=== PATIENT | female | born 1960 | race Caucasian/White ===

== ENCOUNTER 2020-05-30 08:29 | Outpatient (CLI) | payer MEDICARE, MEDICAID, SELFPAY ==
--- NOTE | 2020-05-30 09:00 | IR_ITS ---
NOTE: Report was unsigned for reason: Order was edited. Original Signature date and time was: 05/30/20 @ 1024 WS: [id number] AP and lateral lumbar spine, 05/30/2020 Clinical Data: Low back pain Comparison: None. Findings: Severe osteoarthritic change is noted at all the vertebral bodies L1-L5. There is an attempt to perform a myelogram but the osteoarthritic change presented entry of the spinal needle into the spinal canal.No complications occurred. MTDD
== END 2020-05-30 08:30 | disposition home or self-care (01) ==
LOC: RADWPI 08:34
PROVIDERS: Family Provider Nurse Practitioner Family; PCP Nurse Practitioner Family; Visit Provider Licensed Practical Nurse
DX: M54.5 Low back pain (principal)
CPT/HCPCS: 62305; 72040; 72100; 72120

== ENCOUNTER 2020-06-24 10:09 | Outpatient (CLI) | payer MEDICARE, MEDICAID, SELFPAY ==
--- NOTE | 2020-06-24 11:00 | XR_ITS ---
WS: [id number] CERVICAL SPINE FLEXION EXTENSION TECHNIQUE: 3 views of the cervical spine: lateral neutral, flexion and extension views. CLINICAL INFORMATION: Neck pain COMPARISON: None. FINDINGS: Straightening of the normal cervical lordosis with moderate spondylitic changes. Disc space narrowing throughout the cervical spine at C3-C4 C4-C5 and C5-C6. Anterior hypertrophic changes. Normal C1-C2 articulation. No instability on flexion-extension. XR/XR cervical spine fl/ex [id number] IMPRESSION: No instability on flexion-extension.
--- NOTE | 2020-06-24 11:10 | CT_ITS ---
WS: [id number] CT CERVICAL SPINE TECHNIQUE: Noncontrast CT of the cervical spine with coronal and sagittal reformatted images. CLINICAL INFORMATION: cervical pain COMPARISON: MRI 6 15,019 DLP: 2043.[address] scans at [facility] use at least one of these dose optimization techniques: automat ed exposure control; mA and/or kV adjustment per patient size (includes targeted exams where dose is matched to clinical indication); or iterative reconstruction. FINDINGS: Moderate spondylitic changes. Straightening of the normal cervical lordosis. Disc space narrowing thr oughout the cervical spine. Images degraded by beam hardening artifact. C2-C3: Normal. C3-C4: Disc osteophyte complex with moderate to severe left bony foraminal narrowing. Right foramen i s patent. Spinal canal is patent. Mild left facet arthropathy. C4-C5: Disc osteophyte complex with endplate ridging. Severe left and moderate right bony foraminal n arrowing. Mild central canal stenosis. C5-C6: Disc osteophyte complex with endplate ridging. Mild to moderate central canal stenosis. Modera te to severe left greater than right bony foraminal narrowing. Mild facet arthropathy. C6-C7: Disc osteophyte complex with endplate ridging. Moderate to severe bilateral bony foraminal lico rowing left greater than right. Mild facet arthropathy. Mild central canal stenosis. C7-T1: No significant disc bulging. Spinal canal and foramen are patent. Mild facet arthropathy. Visualized posterior nasopharynx: Normal. Prevertebral soft tissues: Normal. CT/CT cervical spin wo con* [id number] IMPRESSION: 1. Moderate spondylitic changes with straightening of the normal cervical lord osis. 2. Mild to moderate central canal stenosis C4-C5, C5-C6, C6-C7 due to disc ost eophyte complexes. 3. Multilevel bony foraminal narrowing moderate to severe worse at left C3-4, bilateral C4-5, bilateral C5-C6, and left C6-C7.
== END 2020-06-24 10:10 | disposition home or self-care (01) ==
PROVIDERS: Family Provider Nurse Practitioner Family; PCP Nurse Practitioner Family; Visit Provider Licensed Practical Nurse
DX: M54.2 Cervicalgia (principal); M48.02 Spinal stenosis, cervical region
CPT/HCPCS: 72040; 72125

== ENCOUNTER → 2020-06-30 08:00 | Outpatient (BNVA) | payer MEDICARE, MEDICAID, SELFPAY | PROVIDERS: Family Provider Nurse Practitioner Family; PCP Nurse Practitioner Family; Visit Provider Licensed Practical Nurse | DX: M48.02 Spinal stenosis, cervical region (principal); M51.17 Intervertebral disc disorders with radiculopathy, lumbosacral region; M50.020 Cervical disc disorder with myelopathy, mid-cervical region, unspecified level; G56.03 Carpal tunnel syndrome, bilateral upper limbs; E66.01 Morbid (severe) obesity due to excess calories; Z68.42 Body mass index [BMI] 45.0-49.9, adult; F17.210 Nicotine dependence, cigarettes, uncomplicated | CPT/HCPCS: 99214 ==